=== PATIENT | male | born 1935 | race Caucasian/White ===

== ENCOUNTER 2019-10-14 09:00 | Outpatient (CLI) | payer MEDICARE, SELFPAY | END 2019-10-14 09:01 | disposition home or self-care (01) | LOC: RHEOACUTE 10-21 16:16 | PROVIDERS: Family Provider Student in an Organized Health Care Education/Training Program; PCP Student in an Organized Health Care Education/Training Program; Visit Provider Internal Medicine Rheumatology | DX: Z76.89 Persons encountering health services in other specified circumstances (principal) | CPT/HCPCS: J3262 ==

== ENCOUNTER → 2019-10-14 10:40 | Outpatient (BNVA) | payer MEDICARE, SELFPAY | PROVIDERS: Family Provider Student in an Organized Health Care Education/Training Program; PCP Student in an Organized Health Care Education/Training Program; Referring Provider Obstetrics & Gynecology; Visit Provider Internal Medicine Rheumatology | DX: M05.79 Rheumatoid arthritis with rheumatoid factor of multiple sites without organ or systems involvement (principal) | CPT/HCPCS: 96365; J3262 ==

== ENCOUNTER → 2019-10-22 09:41 | Outpatient (BNVA) | payer MEDICARE, SELFPAY | PROVIDERS: Family Provider Student in an Organized Health Care Education/Training Program; PCP Student in an Organized Health Care Education/Training Program; Referring Provider Student in an Organized Health Care Education/Training Program; Visit Provider Internal Medicine Rheumatology | DX: M05.79 Rheumatoid arthritis with rheumatoid factor of multiple sites without organ or systems involvement (principal); Z79.52 Long term (current) use of systemic steroids; Z79.899 Other long term (current) drug therapy; N18.9 Chronic kidney disease, unspecified; G62.9 Polyneuropathy, unspecified | CPT/HCPCS: 99214 ==

== ENCOUNTER 2019-11-13 10:47 | Outpatient (CLI) | payer MEDICARE, SELFPAY ==
[2019-11-13 11:15] VITALS: BP 120/71; PULSE 53; RESP 16; TEMP 36.8; O2SAT 97
[2019-11-13 13:30] VITALS: BP 138/78; PULSE 60; RESP 16; TEMP 36.5; O2SAT 97
== END 2019-11-13 10:48 | disposition home or self-care (01) ==
LOC: RHEOACUTE 10:48
PROVIDERS: Family Provider Student in an Organized Health Care Education/Training Program; PCP Student in an Organized Health Care Education/Training Program; Visit Provider Internal Medicine Rheumatology
DX: M05.79 Rheumatoid arthritis with rheumatoid factor of multiple sites without organ or systems involvement (principal); Z79.899 Other long term (current) drug therapy
CPT/HCPCS: 36415; 80076; 82565; 85025; 86140; 96365; J3262

== ENCOUNTER → 2019-11-13 11:47 | Outpatient (BNVA) | payer MEDICARE, SELFPAY | PROVIDERS: Family Provider Student in an Organized Health Care Education/Training Program; PCP Student in an Organized Health Care Education/Training Program | DX: Z79.899 Other long term (current) drug therapy (principal); M05.79 Rheumatoid arthritis with rheumatoid factor of multiple sites without organ or systems involvement | CPT/HCPCS: 85025 ==

== ENCOUNTER 2019-12-11 10:39 | Outpatient (CLI) | payer MEDICARE, SELFPAY ==
[2019-12-11 11:00] VITALS: BP 127/66; PULSE 60; RESP 16; TEMP 36.6; O2SAT 96
[2019-12-11 15:39] VITALS: BP 126/76; PULSE 53; RESP 16; TEMP 36.6; O2SAT 98
== END 2019-12-11 10:40 | disposition home or self-care (01) ==
LOC: RHEOACUTE 10:40
PROVIDERS: Family Provider Student in an Organized Health Care Education/Training Program; PCP Student in an Organized Health Care Education/Training Program; Visit Provider Internal Medicine Rheumatology
DX: M05.79 Rheumatoid arthritis with rheumatoid factor of multiple sites without organ or systems involvement (principal)
CPT/HCPCS: 96365; J3262

== ENCOUNTER 2020-01-09 10:45 | Outpatient (CLI) | payer MEDICARE, SELFPAY ==
[2020-01-09 10:57] VITALS: BP 143/81; PULSE 57; RESP 16; TEMP 36.7; O2SAT 98
[2020-01-09 12:45] VITALS: BP 135/78; PULSE 50; RESP 16; TEMP 36.4; O2SAT 96
== END 2020-01-09 10:46 | disposition home or self-care (01) ==
LOC: RHEOACUTE 10:46
PROVIDERS: Family Provider Student in an Organized Health Care Education/Training Program; PCP Student in an Organized Health Care Education/Training Program; Visit Provider Internal Medicine Rheumatology
DX: Z79.899 Other long term (current) drug therapy (principal); M05.79 Rheumatoid arthritis with rheumatoid factor of multiple sites without organ or systems involvement
CPT/HCPCS: 36415; 80076; 82565; 85025; 85651; 86140; 96365; J3262

== ENCOUNTER → 2020-01-09 10:58 | Outpatient (BNVA) | payer MEDICARE, SELFPAY | PROVIDERS: Family Provider Student in an Organized Health Care Education/Training Program; PCP Student in an Organized Health Care Education/Training Program; Visit Provider Internal Medicine Rheumatology | DX: Z79.899 Other long term (current) drug therapy (principal) | CPT/HCPCS: 85025 ==

== ENCOUNTER 2020-02-10 10:48 | Outpatient (CLI) | payer MEDICARE, SELFPAY ==
[2020-02-10 11:34] VITALS: BP 130/63; PULSE 59; RESP 16; TEMP 36.7; O2SAT 96
[2020-02-10 13:20] VITALS: BP 132/70; PULSE 59; RESP 18; TEMP 36.6; O2SAT 96
== END 2020-02-10 10:49 | disposition home or self-care (01) ==
LOC: RHEOACUTE 10:49
PROVIDERS: Family Provider Student in an Organized Health Care Education/Training Program; PCP Student in an Organized Health Care Education/Training Program; Visit Provider Internal Medicine Rheumatology
DX: M05.79 Rheumatoid arthritis with rheumatoid factor of multiple sites without organ or systems involvement (principal)
CPT/HCPCS: 96365; J3262

== ENCOUNTER 2020-04-07 11:38 | Outpatient (CLI) | payer MEDICARE, SELFPAY ==
[2020-04-07 11:54] VITALS: BP 127/73; PULSE 57; RESP 16; TEMP 36.7; O2SAT 96
[2020-04-07 13:55] VITALS: BP 140/74; PULSE 56; O2SAT 97
== END 2020-04-07 11:39 | disposition home or self-care (01) ==
LOC: RHEOACUTE 11:39
PROVIDERS: Family Provider Student in an Organized Health Care Education/Training Program; PCP Student in an Organized Health Care Education/Training Program; Visit Provider Internal Medicine Rheumatology
DX: M05.79 Rheumatoid arthritis with rheumatoid factor of multiple sites without organ or systems involvement (principal)
CPT/HCPCS: 96365; J3262

== ENCOUNTER 2020-05-05 14:08 | Outpatient (CLI) | payer MEDICARE, SELFPAY ==
[2020-05-05 14:25] VITALS: BP 162/87; PULSE 62; RESP 16; TEMP 36.6; O2SAT 97
--- NOTE | 2020-05-05 14:54 | PC.NURSE ---
1430 Pt states pt has sore on bottom. Assessed area. Noted approx 0.75cm open area to R inner buttocks area. Dr. Wood notified. Dr. Wood will assess. Hold infusion for now.
--- NOTE | 2020-05-05 16:23 | PC.NURSE ---
Home meds reviewed. Current list given to pt.
[2020-05-05 17:25] VITALS: BP 175/83; PULSE 54; RESP 16; O2SAT 96
== END 2020-05-05 14:09 | disposition home or self-care (01) ==
LOC: RHEOACUTE 14:09
PROVIDERS: Family Provider Student in an Organized Health Care Education/Training Program; PCP Student in an Organized Health Care Education/Training Program; Visit Provider Internal Medicine Rheumatology
DX: M05.79 Rheumatoid arthritis with rheumatoid factor of multiple sites without organ or systems involvement (principal); L89.309 Pressure ulcer of unspecified buttock, unspecified stage; Z79.899 Other long term (current) drug therapy; Z79.52 Long term (current) use of systemic steroids
CPT/HCPCS: 96365; 99214; J3262

== ENCOUNTER 2020-05-11 09:49 | Outpatient (CLI) | payer MEDICARE, SELFPAY | END 2020-05-11 09:50 | disposition home or self-care (01) | LOC: WOUND 09:50 | PROVIDERS: Family Provider Student in an Organized Health Care Education/Training Program; PCP Student in an Organized Health Care Education/Training Program; Visit Provider Emergency Medicine | DX: L89.312 Pressure ulcer of right buttock, stage 2 (principal) | CPT/HCPCS: 11042; 87070; 87077; 87176; 87186; 87205; G0463 ==

== ENCOUNTER 2020-05-18 10:15 | Outpatient (CLI) | payer MEDICARE, SELFPAY | END 2020-05-18 10:16 | disposition home or self-care (01) | LOC: WOUND 10:16 | PROVIDERS: Family Provider Student in an Organized Health Care Education/Training Program; PCP Student in an Organized Health Care Education/Training Program; Visit Provider Emergency Medicine | DX: L89.312 Pressure ulcer of right buttock, stage 2 (principal) | CPT/HCPCS: 11042 ==

== ENCOUNTER 2020-05-25 10:19 | Outpatient (CLI) | payer MEDICARE, SELFPAY | END 2020-05-25 10:20 | disposition home or self-care (01) | LOC: WOUND 10:22 | PROVIDERS: Family Provider Student in an Organized Health Care Education/Training Program; PCP Student in an Organized Health Care Education/Training Program; Visit Provider Emergency Medicine | DX: L89.312 Pressure ulcer of right buttock, stage 2 (principal) | CPT/HCPCS: 11042 ==

== ENCOUNTER 2020-06-08 10:37 | Outpatient (CLI) | payer MEDICARE, SELFPAY | END 2020-06-08 10:38 | disposition home or self-care (01) | LOC: WOUND 10:42 | PROVIDERS: Family Provider Student in an Organized Health Care Education/Training Program; PCP Student in an Organized Health Care Education/Training Program; Visit Provider Emergency Medicine | DX: Z09 Encounter for follow-up examination after completed treatment for conditions other than malignant neoplasm (principal) | CPT/HCPCS: 99212 ==

== ENCOUNTER 2020-06-17 10:20 | Outpatient (CLI) | payer MEDICARE, SELFPAY ==
[2020-06-17 10:32] VITALS: BP 150/78; PULSE 59; RESP 16; TEMP 36.6; O2SAT 96
[2020-06-17 11:06] VITALS: BMI 35.7
--- NOTE | 2020-06-17 11:27 | PC.NURSE ---
1100 Pt upset over delay in starting infusion. Discussed with pt that pharmacy cannot mix infusion until her arrives and is assessed.
[2020-06-17 12:27] VITALS: BP 143/72; PULSE 57; RESP 16; O2SAT 96
== END 2020-06-17 10:21 | disposition home or self-care (01) ==
LOC: RHEOACUTE 10:21
PROVIDERS: Family Provider Student in an Organized Health Care Education/Training Program; PCP Student in an Organized Health Care Education/Training Program; Visit Provider Internal Medicine Rheumatology
DX: M05.79 Rheumatoid arthritis with rheumatoid factor of multiple sites without organ or systems involvement (principal); Z79.899 Other long term (current) drug therapy
CPT/HCPCS: 80076; 82565; 85025; 85651; 86140; 96365; J3262

== ENCOUNTER → 2020-09-02 09:26 | Outpatient (BNVA) | payer MEDICARE, SELFPAY | PROVIDERS: Family Provider Student in an Organized Health Care Education/Training Program; PCP Student in an Organized Health Care Education/Training Program; Visit Provider Internal Medicine Rheumatology | DX: M05.79 Rheumatoid arthritis with rheumatoid factor of multiple sites without organ or systems involvement (principal); Z79.899 Other long term (current) drug therapy; D69.6 Thrombocytopenia, unspecified; G62.9 Polyneuropathy, unspecified; M15.9 Polyosteoarthritis, unspecified; Z87.891 Personal history of nicotine dependence | CPT/HCPCS: 99214 ==